=== PATIENT | female | born 1970 | race Caucasian/White ===

== ENCOUNTER 2018-08-30 19:35 | Emergency (ER) | payer BC ==
[~2018-08-30] VITALS: Ht 160 cm; Wt 70.3 kg
--- NOTE | 2018-08-30 20:04 | PHYS DOC ---
Adult General Chief Complaint Chief Complaint: SORE THROAT HPI HPI 47-year-old female presents with one-week history of nasal congestion, cough productive of dark sputum, sinus pressure. The patient has a history of sinus infections. She is concerned getting another one. She has not had measured fever at home. She has been using her nasal rinse machine as well as [id number] medications without relief. Things seemed to be getting worse. Patient also states concern about a palpable mass in the posterior left neck. 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 She just wants to make sure something didn't migrate. Review of Systems Review of Systems Constitutional: Denies fever or chills [] Eyes: Denies change in visual acuity, redness, or eye pain [] HENT: nasal congestion with sore throat. Facial pressure [] Respiratory: cough without shortness of breath [] Cardiovascular: No additional information not addressed in HPI [] GI: Denies abdominal pain, nausea, vomiting, bloody stools or diarrhea [] : Denies dysuria or hematuria [] Musculoskeletal: Denies back pain or joint pain [] Integument: Denies rash or skin lesions [] Neurologic: Denies headache, focal weakness or sensory changes [] Endocrine: Denies polyuria or polydipsia [] All other systems were reviewed and found to be within normal limits, except as documented in this note. Allergies Allergies Allergies Coded Allergies Type Severity Reaction Last Updated Verified latex Allergy Unknown 08/30/18 Yes prochlorperazine Allergy Unknown 08/30/18 Yes Uncoded Allergies Type Severity Reaction Last Updated Verified PAPER TAPE Allergy Unknown 08/30/18 Physical Exam Physical Exam Constitutional: Well developed, well nourished, no acute distress, non-toxic appearance. [] HENT: Normocephalic, atraumatic, bilateral external ears normal, oropharynx moist, no oral exudates, nose erythematous, congested. [] Eyes: PERRLA, EOMI, conjunctiva normal, no discharge. [] Neck: Normal range of motion, no tenderness, supple, no stridor. I do not feel a mass[] Cardiovascular:Heart rate regular rhythm, no murmur [] Lungs & Thorax: Bilateral breath sounds decreased but clear to auscultation [] Abdomen: Bowel sounds normal, soft, no tenderness, no masses, no pulsatile masses. [] Skin: Warm, dry, no erythema, no rash. [] Back: No tenderness, no CVA tenderness. [] Extremities: No tenderness, no cyanosis, no clubbing, ROM intact, no edema. [] Neurologic: Alert and oriented X 3, normal motor function, normal sensory function, no focal deficits noted. [] Psychologic: Affect normal, judgement normal, mood normal. [] EKG EKG [] Radiology/Procedures Radiology/Procedures [] Impressions: Preliminary interpretation chest x-ray: No acute cardiopulmonary finding. Preliminary interpretation cervical x-ray: Surgical fusion hardware appears to be placed. Surgical clips visible in the anterior neck, appeared to be consistent with procedure previously reported. Course & Med Decision Making Course & Med Decision Making Pertinent Labs and Imaging studies reviewed. (See chart for details) Patient's x-rays are unremarkable. Based on my physical exam, I believe the patient is having sinusitis. I will treat her with Augmentin for 7 days. She is stable for discharge at this time. [] Dragon Disclaimer Dragon Disclaimer This electronic medical record was generated, in whole or in part, using a voice recognition dictation system. Departure Departure: Impression: Primary Impression: Sinusitis Disposition: HOME, SELF-CARE Condition: STABLE Referrals: NON,STAFF (PCP) Scripts Amoxicillin/Potassium Clav (AUGMENTIN 875-125 TABLET) 1 Each Tablet 1 TAB PO BID for sinusitis, #14 TAB Prov: SHYANNE JEFF DO 08/30/18 Problem Qualifiers Primary Impression: Sinusitis Sinusitis location: maxillary Chronicity: acute Recurrence: not specified as recurrent Qualified Codes: J01.00 - Acute maxillary sinusitis, unspecified SHYANNE JEFF DO August 30, 2018 20:04
[2018-08-30] MEDS ORDERED: AMOX1TAB61 PO (20:45)
[2018-08-30] MEDS ORDERED: AMOXICILLIN/K CLAV 875/125MG TABLET. PO ONE (20:45)
[2018-08-30 20:48] VITALS: BP 149/95
[2018-08-30] MEDS ORDERED: AZIT250T6 PO (20:52)
--- NOTE | 2018-08-30 21:03 | RAD ---
CHEST PA LATERAL History: Cough Comparison: None. Findings: 2 views of the chest are submitted. There is no infiltrate, pneumothorax, or effusion. Pericardial cardiac silhouette is within normal limits in size. There is cervical fusion hardware. Impression: 1. There is no radiographic evidence of acute cardiopulmonary disease. Electronically signed by: Buzz Brizuela MD (08/30/2018 9:00 PM) [facility]
--- NOTE | 2018-08-30 21:05 | RAD ---
CERVICAL SPINE 2-3V History: History of carotid aneurysm, concern for migration of clips Comparison: None. Findings: 3 views of the cervical spine are submitted. There has been anterior cervical fusion at C4-5 as well as separate hardware at C5, C6, C7. There are also incorporated interbody grafts at C3-4 and also C5-6 and C6-7. Hardware is intact. Cervical vertebral body stature and AP alignment are maintained. There is multilevel cervical facet degenerative change. There are 3 clips in the left neck near the C4 level, no previous exam to evaluate for change in position. There is a punctate foreign body in the left inferior neck. Impression: 1. There are 3 clips of the mid left neck, no previous exam to evaluate for change in position. There is a punctate foreign body of the inferior left neck. 2. There is multilevel anterior cervical fusion hardware C4-5 and also separate hardware C5-C7. Electronically signed by: Buzz Brizuela MD (08/30/2018 9:03 PM) [facility]
== END 2018-08-30 20:54 | disposition home or self-care (01) ==
LOC: ER 19:35
DX: J01.00 Acute maxillary sinusitis, unspecified (principal); M43.22 Fusion of spine, cervical region; Z88.8 Allergy status to other drugs, medicaments and biological substances; Z91.040 Latex allergy status
CPT/HCPCS: 71046; 72040; 99284